=== PATIENT | female | born 1955 | race Caucasian/White ===

== ENCOUNTER 2022-06-27 15:22 | Emergency (ER) | payer MEDICARE, MEDICAID ==
[~2022-06-27] VITALS: Ht 170.2 cm; Wt 81.8 kg
[2022-06-27 15:32] VITALS: BP 202/78
[2022-06-27 15:37] LABS: BASOPHILS # (AUTO) 0.2 X10'3 (0-0.2); BASOPHILS % (AUTO) 1.5 % (0-1); EOSINOPHILS # (AUTO) 0.5 X10'3 (0-0.9); EOSINOPHILS % (AUTO) 3.8 % (0-6); HEMATOCRIT 38.2 % (35.0-45.0); HEMOGLOBIN 12.7 g/dl (12.0-16.0); LYMPHOCYTES # (AUTO) 3.1 X10'3 (1.1-4.8); MEAN CORPUSCULAR HEMOGLOBIN 30.2 PG (27.0-31.0); MEAN CORPUSCULAR HGB CONC 33.3 g/dL (33.0-36.5); MEAN CORPUSCULAR VOLUME 90.9 FL (78-98); MEAN PLATELET VOLUME 7.7 FL (7.4-10.4); MONOCYTES # (AUTO) 0.7 X10'3 (0-0.9); MONOCYTES % (AUTO) 5.6 % (2-12); NEUTROPHILS # (AUTO) 7.5 X10'3 (1.8-7.7); NEUTROPHILS % (AUTO) 63.1 % (42-75); PLATELET COUNT 396 X10'3 (140-440); RED BLOOD COUNT 4.21 X10'6 (4.20-5.60); RED CELL DISTRIBUTION WIDTH 12.7 % (11.5-14.5)
[2022-06-27 15:50] LABS: APTT 25 SECONDS (22-32)
[2022-06-27 16:37] LABS: ALANINE AMINOTRANSFERASE 16 U/L (12-78); ALBUMIN 3.5 G/DL (3.4-5.0); ALBUMIN/GLOBULIN RATIO 0.9 (1.1-1.5); ALKALINE PHOSPHATASE 101 IU/L (46-116); ANION GAP 12 (8-16); ASPARTATE AMINO TRANSFERASE 15 U/L (10-37); BILIRUBIN,TOTAL 0.3 MG/DL (0.1-1.0); BLOOD UREA NITROGEN 34 MG/DL (7-18); BUN/CREATININE RATIO 20.7 (6.6-38.0); CALCIUM 9.9 MG/DL (8.5-10.1); CHLORIDE 101 MMOL/L (99-107); CREATININE 1.64 MG/DL (0.40-0.90); GLUCOSE 275 MG/DL (70-104); MAGNESIUM 1.9 MG/DL (1.5-2.4); POTASSIUM 4.7 MMOL/L (3.5-5.1); SODIUM 137 MMOL/L (135-145); TOTAL CARBON DIOXIDE 24.4 MMOL/L (24-32); TOTAL PROTEIN 7.4 G/DL (6.4-8.2); eGFR 31 ML/MIN
== END 2022-06-27 23:35 | disposition left against medical advice (07) ==
LOC: ER 15:23
DX: I63.9 Cerebral infarction, unspecified (principal); Z53.21 Procedure and treatment not carried out due to patient leaving prior to being seen by health care provider
CPT/HCPCS: 36415; 70450; 71045; 80053; 83735; 83880; 84484; 85025; 85610; 85730; 93005

== ENCOUNTER 2023-12-20 09:36 | Day surgery (SDC) | payer MEDICARE, MEDICAID ==
[~2023-12-20] VITALS: Ht 170.2 cm; Wt 81.8 kg
[2023-12-20 10:10] VITALS: BP 136/82; PULSE 67; RESP 16
[2023-12-20] MEDS ORDERED: MIDAZolam 1 MG/ML 5ML VIAL ONE (10:27)
[2023-12-20] MEDS ORDERED: LIDOcaine 2% Viscous 15ml cup ONE (10:27)
[2023-12-20] MEDS ORDERED: fentaNYL/PF 50MCG/1 ML 2ML syringe ONE (10:27)
[2023-12-20] MEDS ORDERED: diphenhydrAMINE 50 mg/ml inj ONE (10:27)
[2023-12-20] MEDS ORDERED: AMLO-139 PO (10:40)
[2023-12-20] MEDS ORDERED: LEVO25CA4 PO (10:40)
[2023-12-20] MEDS ORDERED: INSU100C4 SQ (10:40)
[2023-12-20] MEDS ORDERED: DULA0.75 SUBCUT (10:40)
[2023-12-20] MEDS ORDERED: CHLO25TA10 PO (10:40)
[2023-12-20] MEDS ORDERED: LOP12.5T PO (10:40)
[2023-12-20] MEDS ORDERED: CYCL1DRO18 (10:40)
[2023-12-20] MEDS ORDERED: EVOL140S2 SUBCUT (10:40)
[2023-12-20] MEDS ORDERED: INSU300I (10:40)
[2023-12-20] MEDS ORDERED: METF-900 PO (10:40)
[2023-12-20 11:03] VITALS: BP 151/75; PULSE 68; RESP 13; O2SAT 98
[2023-12-20 11:11] VITALS: BP 167/76; PULSE 67; RESP 14; O2SAT 96
[2023-12-20 11:21] VITALS: BP 160/79; PULSE 68; RESP 13; O2SAT 97
[2023-12-20 11:31] VITALS: BP 166/78; PULSE 69; RESP 15; O2SAT 98
== END 2023-12-20 11:30 | disposition home or self-care (01) ==
LOC: GI LAB 09:36
PROVIDERS: ATTEND Internal Medicine Gastroenterology
DX: R13.10 Dysphagia, unspecified (principal); K21.00 Gastro-esophageal reflux disease with esophagitis, without bleeding; K29.71 Gastritis, unspecified, with bleeding
CPT/HCPCS: 43239; J1200; J2250; J3010; J7030; Z7512; 99152; A4620